=== PATIENT | female | born 1935 | race Caucasian/White ===

== ENCOUNTER 2022-10-28 08:03 | Outpatient (AMB) | payer MEDICAID, SELFPAY ==
--- NOTE | 2022-10-28 08:12 | MHC.OFFVIS ---
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-Cognitive Decline - LVM to r/s MD off-LVM Intake Note: NPV for Cognative decline Clinical Science Consultant Required: Yes Clinical Science Consultant Name: Romansh Allergies No Known Allergies Allergy (Unverified 10/28/22 08:12) Medication List - Last Reconciled 10/28/22 by Brit Jacob MD amlodipine 2.5 mg PO DAILY aspirin 1 tab PO DAILY atorvastatin 20 mg PO DAILY donepezil 10 mg PO BEDTIME doxycycline hyclate 100 mg PO BID escitalopram oxalate 5 mg PO DAILY gabapentin mg PO multivitamin 1 tab PO DAILY HPI HPI Comments History of Present Illness Details 87y/o female comes for evaluation of memory issues. 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 she misplaces things around the house and searches often .she has short term memory issues, repeats often. 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 she has depression since she lost siblings younger than her.Her younger sister had dementia and was very advanced when she passed.she has another sibling with cognitive issues. No head injury. 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 [facility] Medical History (Updated 10/28/22 @ 08:59 by Brit Jacob MD) Nocturnal leg cramps Hyperlipidemia Shingles HTN (hypertension) Anxiety Cognitive disorder Surgical History (Updated 10/19/22 @ 09:40 by Maday Carlin [facility]) Hx of cataract surgery History of hip replacement Family History (Updated 10/28/22 @ 08:16 by Amira Bella CMA) Maternal Grandfather Heart disease Family/Other Alzheimer's dementia Social History (Updated 10/28/22 @ 08:17 by Amira Bella CMA) Alcohol intake: never Patient Tobacco Use Status: Never used Tobacco Use of substances other than those prescribed or required for medical reasons: No Review of Systems Const Reports no additional complaints Musc Reports abnormal gait Neuro Reports abnormal gait and Reports memory loss Psych Reports anxiety and Reports memory loss Physical Exam Vital Signs: Last Vital Signs Pulse 75 10/28/22 08:18 BP 130/78 10/28/22 08:18 Pulse Ox 96 10/28/22 08:18 Oxygen Delivery Method Room Air 10/28/22 08:18 BMI result Body Mass Index 22.4 Const General: cooperative, healthy appearing and anxious Nutritional Appearance: average body habitus Orientation/consciousness: patient oriented x3 Neuro General: patient oriented x3 Orientation What is the (year) (season) (date) (day) (month)?: year, season and month Where are we (state) (county) (town or city) (hospital) (floor)?: state, county, town or city and hospital/clinic Registration Name of 3 unrelated objects clearly and slowly, then ask patient to repeat all 3 of them. (1st repeat determines score. Make sure they can repeat all three): object 1, object 2 and object 3 Attention & Calculation (CHOOSE ONE) Spell WORLD backwards (DLROW): 5 letters Recall Ask patient to repeat the 3 items from question #3.: object 1 Language Show patient a wristwatch & ask what it is. Repeat for pencil.: watch and pencil Ask the patient to repeat the phrase 'No ifs, ands, or buts' after you.: correct Ask the patient to 'take a piece of paper with their right hand' 'fold paper in half' 'place paper on floor': take paper in right hand, fold paper in half and place paper on floor Print the sentence 'CLOSE YOUR EYES' on a piece. If patient actually closes eyes then score.: followed written direction Give patient a blank piece of paper & ask to write a sentence. Score if it contains a noun & verb.: sentence contains subject and verb Ask patient to copy figure of intersecting pentagons exactly. Score if all 10 angles & 2 intersects are included.: all 10 angles present & 2 are intersected Score Score: 25 Assessment & Plan Assessment & Plan (1) Cognitive disorder: Comment: Mild cognitive impairment vs early dementia Code(s): F09 - Unspecified mental disorder due to known physiological condition (2) Anxiety: Code(s): F41.9 - Anxiety disorder, unspecified Plan She was very anxious during todays visit. I will increase her escitalopram to 10 mg qd MRI brain Labs to r/o reversible causes Continue donepezil 10mg qd will consider adding namenda Cognitive therapy - patient does cognitive activities at home Orders: Orders Comprehensive Met. Panel Today F09 - Unspecified mental disorder due to known physiological condition Vitamin B12 and Folate Today F09 - Unspecified mental disorder due to known physiological condition MR head/brain wo con Today F09 - Unspecified mental disorder due to known physiological condition Complete Blood Count Auto Diff Today F09 - Unspecified mental disorder due to known physiological condition TSH reflex Free T4 Today F09 - Unspecified mental disorder due to known physiological condition Vitamin D 25-OH (D2 and D3) Today F09 - Unspecified mental disorder due to known physiological condition Erythrocyte Sedimentation Rate Today F09 - Unspecified mental disorder due to known physiological condition Medications: New escitalopram oxalate 10 mg PO DAILY 30 tabs 3RF Coding Level of Care Code New Pt Level 4 (00681) Diagnoses Cognitive disorder F09 Anxiety F41.9
[2022-10-28 08:18] VITALS: BP 130/78; PULSE 75; O2SAT 96; BMI 22.4
== END 2022-10-28 09:00 | disposition home or self-care (01) ==
PROVIDERS: Visit Provider Psychiatry & Neurology Neurology
DX: R41.89 Other symptoms and signs involving cognitive functions and awareness (principal); F41.9 Anxiety disorder, unspecified
CPT/HCPCS: 99204

== ENCOUNTER → 2022-10-28 08:03 | Outpatient (BNVA) | payer MEDICAID, SELFPAY | PROVIDERS: Visit Provider Psychiatry & Neurology Neurology ==

== ENCOUNTER 2022-11-28 10:01 | Outpatient (REF) | payer MEDICAID, SELFPAY ==
--- NOTE | ~2022-11-28 | MR_ITS ---
EXAMINATION: MRI brain. INDICATION: Cognitive disorder. . TECHNIQUE: Examination was performed in a high field strength MRI scanner. Multiplanar multisequence MR imaging of the brain was performed without IV contrast enhancement. Additional high-resolution anatomic imaging was performed through the brain and images were submitted for post processing including auto-segmentation and volumetric analysis. FINDINGS: Ventricles, sulci and cisterns are dilated. Multiple patchy and focal T2 hyperintense lesions are seen along bilateral frontal and parietal periventricular and deep white matters, left frontal subcortical white matter. Tiny focal T2 hyperintense lesions are present in bilateral tom radiata and external capsules No focal brainstem or cerebellar lesions with abnormal signal can be seen. Diffusion weighted images show no abnormal regional decrease in diffusion. Normal flow voids of major intracerebral blood vessels are seen in the visualized portion. The pituitary gland is normal. Optic chiasm is not displaced. Cerebellar tonsils position is normal. MR/MR head/brain wo con IMPRESSION: 1. 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 2. No acute cerebral infarction is seen. 3. No evidence of space occupying mass lesion could be found. 4. No evidence of intracranial hemorrhage.
== END 2022-11-28 10:02 | disposition home or self-care (01) ==
LOC: HO.MRI 10:01
PROVIDERS: Visit Provider Psychiatry & Neurology Neurology
DX: F09 Unspecified mental disorder due to known physiological condition (principal)
CPT/HCPCS: 70551

== ENCOUNTER 2023-01-25 08:50 | Outpatient (AMB) | payer MEDICAID, SELFPAY ==
--- NOTE | 2023-01-25 09:02 | A.OFFVIS_ITS ---
Intake Vital Signs 01/25/23 09:03 Height 5 ft Weight 116 lb 8 oz BMI 22.7 BP 130/70 Blood Pressure Location Lt brachial Position Sitting Respiration 16 Pulse 96 Pulse Source Palpation Pulse Oximetry (%) 96 Oxygen Delivery Method Room Air Intake Visit Reasons: 3 mo f/u for Cognitive Decline w/Kathya schultz MD- Conf Intake Note: Pt presents to the office for 3 month follow up for cognitive decline. Pt is here to discuss MRI results from November. Customer Support Analyst Required: No Allergies aspirin Allergy (Intermediate, Verified 01/25/23 09:09) bruising Medication List - Last Reconciled 01/25/23 by Karl Hickey CNP amlodipine 2.5 mg PO DAILY aspirin 1 tab PO DAILY atorvastatin 20 mg PO DAILY cholecalciferol (vitamin D3) 62.5 mcg PO QAM cholecalciferol (vitamin D3) 50 mcg PO DAILY donepezil 10 mg PO BEDTIME escitalopram oxalate 10 mg PO DAILY gabapentin mg PO multivitamin 1 tab PO DAILY HPI HPI Comments History of Present Illness Details 87 y/o female comes for follow up of memory issues. She is accompanied by her son. Pt reports her memory and her mood improved with escitalopram 10 mg daily. She can remember better. Pt is on donepezil 10 mg daily, no side effects reported. Reviewed the lab result, Vitamin D level was low, 24 and she started supplement vitmain D. Brain MRI result reviewed. 1. 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 2. No acute cerebral infarction is seen . 3. No evidence of space occupying mass lesion could be found. 4. No evidence of intracranial hemorrha ge. Pt reports she sleeps good, she used to have nocturnal leg cramps but better now. She is independent all ADLs, drives to local, short distance. [facility] Medical History (Updated 10/28/22 @ 08:59 by Brit Jacob MD) Nocturnal leg cramps Hyperlipidemia Shingles HTN (hypertension) Anxiety Cognitive disorder Surgical History Hx of cataract surgery History of hip replacement Family History Maternal Grandfather Heart disease Family/Other Alzheimer's dementia Social History Alcohol intake: never Patient Tobacco Use Status: Never used Tobacco Review of Systems Const All systems reviewed & are unremarkable except as noted in HPI and below Physical Exam Vital Signs: Last Vital Signs Pulse 96 01/25/23 09:03 Resp 16 01/25/23 09:03 BP 130/70 01/25/23 09:03 Pulse Ox 96 01/25/23 09:03 Oxygen Delivery Method Room Air 01/25/23 09:03 BMI result Body Mass Index 22.7 Const General: cooperative and healthy appearing Nutritional Appearance: average body habitus Orientation/consciousness: patient oriented x3 Neuro General: patient oriented x3 Assessment & Plan Assessment & Plan (1) Cognitive disorder: Comment: Mild cognitive impairment vs early dementia Code(s): F09 - Unspecified mental disorder due to known physiological condition (2) Anxiety: Code(s): F41.9 - Anxiety disorder, unspecified Plan Advised patient to continue to take escitalopram to 10 mg qd. Continue donepezil 10mg qd and vitamin D supplement. Pt does not want to start namenda. Continue to do cognitive therapy - patient does cognitive activities at home, and physical activities. Coding Level of Care Code Est Pt Level 4 (06450) Diagnoses Cognitive disorder F09 Anxiety F41.9
[2023-01-25 09:03] VITALS: BP 130/70; PULSE 96; RESP 16; O2SAT 96; BMI 22.7
== END 2023-01-25 09:42 | disposition home or self-care (01) ==
PROVIDERS: PCP Internal Medicine Geriatric Medicine; Visit Provider Nurse Practitioner Family
DX: G31.84 Mild cognitive impairment of uncertain or unknown etiology (principal); F41.9 Anxiety disorder, unspecified; R90.82 White matter disease, unspecified
CPT/HCPCS: 99214

== ENCOUNTER → 2023-01-25 08:50 | Outpatient (BNVA) | payer MEDICAID, SELFPAY | PROVIDERS: PCP Internal Medicine Geriatric Medicine; Visit Provider Nurse Practitioner Family | DX: F09 Unspecified mental disorder due to known physiological condition (principal); F41.9 Anxiety disorder, unspecified | CPT/HCPCS: 99212 ==

== ENCOUNTER 2023-06-15 07:27 | Outpatient (AMB) | payer MEDICAID, SELFPAY ==
--- NOTE | 2023-06-15 07:30 | A.OFFVIS_ITS ---
Vital Signs 06/15/23 07:31 Height 5 ft Weight 114 lb 6 oz BMI 22.3 BP 160/78 H Blood Pressure Location Rt brachial Position Sitting Respiration 76 H Pulse 69 Pulse Source Pulse Oximeter Pulse Oximetry (%) 98 Oxygen Delivery Method Room Air Intake Visit Reasons: 6 mo f/u - Cognitive Decline Intake Note: Pt presents for 5 month follow up for memory. Director Facilities Maintenance Required: Yes Director Facilities Maintenance Name: Alaina Allergies aspirin Allergy (Intermediate, Verified 06/15/23 07:31) bruising Medication List - Last Reconciled 06/15/23 by Brit Jacob MD amlodipine 2.5 mg PO DAILY aspirin 1 tab PO DAILY atorvastatin 20 mg PO DAILY cholecalciferol (vitamin D3) 62.5 mcg PO QAM cholecalciferol (vitamin D3) 50 mcg PO DAILY donepezil 10 mg PO BEDTIME escitalopram oxalate 10 mg PO DAILY gabapentin mg PO multivitamin 1 tab PO DAILY HPI Comments Details: 87 y/o female comes for follow up of memory issues. She is accompanied by her son. Pt reports her memory and her mood improved with escitalopram 10 mg daily. She can remember better. Pt is on donepezil 10 mg daily, no side effects reported. Pt reports she sleeps good, she used to have nocturnal leg cramps but better now. She is independent all ADLs, drives to local, short distance. [facility] Medical History Nocturnal leg cramps Hyperlipidemia Shingles HTN (hypertension) Anxiety Cognitive disorder Surgical History Hx of cataract surgery History of hip replacement Family History Maternal Grandfather Heart disease Family/Other Alzheimer's dementia Social History Alcohol intake: never Patient Tobacco Use Status: Never used Tobacco Physical Exam Vital Signs: Last Vital Signs Pulse 69 06/15/23 07:31 Resp 76 H 06/15/23 07:31 BP 160/78 H 06/15/23 07:31 Pulse Ox 98 06/15/23 07:31 Oxygen Delivery Method Room Air 06/15/23 07:31 BMI result Body Mass Index 22.3 Const General: cooperative, healthy appearing and comfortable Nutritional Appearance: average body habitus Orientation/consciousness: oriented to person Neuro General: oriented to person, tone normal and moves all extremities Cranial nerves: Yes Facial sensation intact/muscles of mastication intact, Yes Nystagmus not present, Yes Normal facial strength present and Yes Midline tongue present Cognition (Neuro): abnormal cognition Gait exam (Neuro): Antalgic gait present Orientation What is the (year) (season) (date) (day) (month)?: year, season and month Where are we (state) (county) (town or city) (hospital) (floor)?: state, town or city, hospital/clinic and floor Registration Name of 3 unrelated objects clearly and slowly, then ask patient to repeat all 3 of them. (1st repeat determines score. Make sure they can repeat all three): object 1, object 2 and object 3 Attention & Calculation (CHOOSE ONE) Spell WORLD backwards (DLROW): 2 letters Language Show patient a wristwatch & ask what it is. Repeat for pencil.: watch and pencil Ask the patient to repeat the phrase 'No ifs, ands, or buts' after you.: correct Ask the patient to 'take a piece of paper with their right hand' 'fold paper in half' 'place paper on floor': take paper in right hand, fold paper in half and place paper on floor Print the sentence 'CLOSE YOUR EYES' on a piece. If patient actually closes eyes then score.: followed written direction Give patient a blank piece of paper & ask to write a sentence. Score if it contains a noun & verb.: sentence contains subject and verb Ask patient to copy figure of intersecting pentagons exactly. Score if all 10 angles & 2 intersects are included.: all 10 angles present & 2 are intersected Score Score: 21 Assessment & Plan Assessment & Plan (1) Cognitive disorder: Comment: dementia Code(s): F09 - Unspecified mental disorder due to known physiological condition Category: Medical (2) Anxiety: Code(s): F41.9 - Anxiety disorder, unspecified Category: Medical Plan Advised patient to continue to take escitalopram to 10 mg qd. Continue donepezil 10mg qd and vitamin D supplement. I will trial her on memantineXR 7mg qd and titrate upto 28 mg qd will consider PET Amyloid for possible treatment with leqembi Continue to do cognitive therapy - patient does cognitive activities at home, and physical activities. Medications: New memantine 7 mg PO DAILY 30 ea 0RF memantine start after 1 month on 14 mg 21 mg PO DAILY 30 ea 0RF memantine start after 1 month on 7 mg 14 mg PO DAILY 30 ea 0RF memantine 28 mg PO DAILY 30 ea 6RF Coding Level of Care Code Est Pt Level 4 (72865) Complex EM visit Add On G2211 Diagnoses Cognitive disorder F09 Anxiety F41.9
[2023-06-15 07:31] VITALS: BP 160/78; PULSE 69; RESP 76; O2SAT 98; BMI 22.3
== END 2023-06-15 08:23 | disposition home or self-care (01) ==
PROVIDERS: PCP Internal Medicine Geriatric Medicine; Visit Provider Psychiatry & Neurology Neurology
DX: F03.93 Unspecified dementia, unspecified severity, with mood disturbance (principal); F41.9 Anxiety disorder, unspecified
CPT/HCPCS: 99214; G2211

== ENCOUNTER → 2023-06-15 07:27 | Outpatient (BNVA) | payer MEDICAID, SELFPAY | PROVIDERS: PCP Internal Medicine Geriatric Medicine; Visit Provider Psychiatry & Neurology Neurology | DX: F09 Unspecified mental disorder due to known physiological condition (principal); F41.9 Anxiety disorder, unspecified | CPT/HCPCS: 99212 ==

== ENCOUNTER 2024-04-08 08:54 | Outpatient (AMB) | payer MEDICAID, SELFPAY ==
[2024-04-08 08:57] VITALS: BP 160/84; PULSE 92; O2SAT 94; BMI 24.5
--- NOTE | 2024-04-08 08:57 | MHC.OFFVIS ---
Vital Signs 04/08/24 08:57 Height 5 ft Weight 125 lb 6 oz BMI 24.5 BP 160/84 H Blood Pressure Location Rt brachial Position Sitting Pulse 92 Pulse Source Pulse Oximeter Pulse Oximetry (%) 94 Oxygen Delivery Method Room Air Intake Visit Reasons: 6 Month F/U Intake Note: patient following up for dementia pt. trialed on memantine Accompanied by: Daughter Allergies aspirin Allergy (Intermediate, Verified 04/08/24 09:01) bruising HPI Comments Details: 87 y/o female comes for follow up of memory issues. She is accompanied by her daughter. Pt reports her memory and her mood are poor, she is more forgetful. Pt is on donepezil 10 mg daily, no side effects reported. Pt reports she sleeps well, she used to have nocturnal leg cramps but are better now. She is independent with all ADLs and lives at the [facility]. Per daughter her mood is irritated at times. Pt says she stays active most days, she goes and cleans her plants, her house, reads daily, walks 10-15 min. Her diet is good and BP is elevated as she has white coat syndrome. Per daughter her memory is declining, however she remains in contact with all her family and friends on a daily basis. [facility] Medical History Nocturnal leg cramps Hyperlipidemia Shingles HTN (hypertension) Anxiety Cognitive disorder Surgical History Hx of cataract surgery History of hip replacement Family History Maternal Grandfather Heart disease Family/Other Alzheimer's dementia Social History Alcohol intake: never Patient Tobacco Use Status: Never used Tobacco Physical Exam Vital Signs: Last Vital Signs Pulse 92 04/08/24 08:57 BP 160/84 H 04/08/24 08:57 Pulse Ox 94 04/08/24 08:57 Oxygen Delivery Method Room Air 04/08/24 08:57 BMI result Body Mass Index 24.5 Const General: cooperative, healthy appearing and comfortable Nutritional Appearance: average body habitus Orientation/consciousness: oriented to person Neuro General: oriented to person, tone normal and moves all extremities Cranial nerves: Yes Facial sensation intact/muscles of mastication intact, Yes Nystagmus not present, Yes Normal facial strength present and Yes Midline tongue present Cognition (Neuro): abnormal cognition Gait exam (Neuro): Antalgic gait present Orientation What is the (year) (season) (date) (day) (month)?: year and day Where are we (state) (county) (town or city) (hospital) (floor)?: state, town or city and hospital/clinic Attention & Calculation (CHOOSE ONE) Spell WORLD backwards (DLROW): 3 letters Recall Ask patient to repeat the 3 items from question #3.: object 2 Language Show patient a wristwatch & ask what it is. Repeat for pencil.: watch and pencil Ask the patient to repeat the phrase 'No ifs, ands, or buts' after you.: incorrect Ask the patient to 'take a piece of paper with their right hand' 'fold paper in half' 'place paper on floor': take paper in right hand, fold paper in half and place paper on floor Print the sentence 'CLOSE YOUR EYES' on a piece. If patient actually closes eyes then score.: followed written direction Score Score: 15 Assessment & Plan Assessment & Plan (1) Cognitive disorder: Comment: dementia Code(s): F09 - Unspecified mental disorder due to known physiological condition Category: Medical (2) Anxiety: Code(s): F41.9 - Anxiety disorder, unspecified Category: Medical (3) Alzheimer's dementia: Code(s): G30.9 - Alzheimer's disease, unspecified; F02.80 - Dementia in other diseases classified elsewhere, unspecified severity, without behavioral disturbance, psychotic disturbance, mood disturbance, and anxiety Category: Medical Qualifiers: Alzheimer's disease onset: unspecified onset Dementia behavioral or psychological symptom: with anxiety Dementia severity: moderate Qualified Code(s): G30.9 - Alzheimer's disease, unspecified; F02.B4 - Dementia in other diseases classified elsewhere, moderate, with anxiety Plan Continue escitalopram 10 mg po qd Continue donepezil 10mg po qd and vitamin D supplement. Continue Memantine XR 28mg po qd Will do an MRI for Leqembi MMSE was 1530 today Will consider PET Amyloid for possible treatment with leqembi Continue with cognitive therapy, puzzles and social activities. F/U in 4 months Orders: Orders MR head/brain wo con 04/08/24 F09 - Unspecified mental disorder due to known physiological condition, R41.3 - Other amnesia Patient Instructions: MMSE 15/30 today MRI scan today Pet-scan- amyloid-montserrat to determine if patient is a good candidate for Leqembi infusion therapy Will f/u in 4 months. Coding Level of Care Code Est Pt Level 4 (69213) Diagnoses Cognitive disorder F09 Anxiety F41.9 Moderate Alzheimer's dementia with anxiety, unspecified timing of dementia onset G30.9; F02.B4 Alzheimer's disease onset: unspecified onset Dementia behavioral or psychological symptom: with anxiety Dementia severity: moderate Time Spent (min) 30 Comment Worsening Dementia
--- OUTSIDE RECORDS SUMMARY | 2024-04-08 09:28 | XMS_ITS | Data Portability ---
Author Organization [facility], [facility] Address [address] [place] [address] Care Team Providers Care Ladle Repairer Name Role Phone [facility] Primary Care Provider Assessment Encounter Date Assessment Date Assessment LastModified by Organization Details LastModified Time 07/09/2018 07/09/2018 Peripheral vascular disease, onychauxis bilateral hallux jerskine Not available 07/09/2018 09:20:51 09/17/2018 09/17/2018 Peripheral vascular disease, onychauxis bilateral hallux jerskine Not available 09/17/2018 09:21:53 04/15/2019 04/15/2019 Peripheral vascular disease, onychauxis bilateral hallux jerskine Not available 04/15/2019 12:33:17 04/03/2023 04/03/2023 Peripheral vascular disease, onychauxis bilateral hallux, hyperkeratotic lesion jerskine Not available 04/03/2023 14:21:33 08/18/2023 08/18/2023 Peripheral vascular disease, onychauxis bilateral hallux causing pain, hyperkeratotic lesion jerskine Not available 08/18/2023 12:26:08 Plan of Treatment Reminders Order Date Submit Date Provider Last Modified By Organization Details Last Modified Time Details Appointments Follow Up, 15 2024 09:30A M Ronald Casillas DPM Not available Not available Not available Lab None recorded . Referral None recorded . Procedures None recorded . Surgeries None recorded . Imaging None recorded . Medication Orders None recorded . Patient TargetsNo targets recorded. Patient Instructions Encounter Date Encounter Id Patient Instructions Last Modified By Organization Details Last Modified Time 07/09/2018 [id number] Procedure return in 9 weeks for foot care to reduce risk of complications associated with peripheral vascular disease. jerskine Not available 07/09/2018 09:21:19 09/17/2018 [id number] Procedure return in 9 weeks for foot care to reduce risk of complications associated with peripheral vascular disease. jerskine Not available 09/17/2018 09:21:53 04/15/2019 [id number] Procedure return in 9 weeks for foot care to reduce risk of complications associated with peripheral vascular disease. jerskine Not available 04/15/2019 12:33:17 04/03/2023 [id number] Procedure return in 9 weeks for foot care to reduce risk of complications associated with peripheral vascular disease. jerskine Not available 04/03/2023 14:19:26 08/18/2023 [id number] Procedure return in 9 weeks for foot care to reduce risk of complications associated with peripheral vascular disease. jerskine Not available 08/18/2023 12:24:42 Reason for Referral None Reported. Problems Name Problem SNOMED Code Status Onset Date Resolution Date Notes Provider Name and Address Organization Details Recorded Time Cramp in lower leg associated with rest 902646472 Completed 12/26/2012 Heather Wagner NP [address] [place] [address] [place], [address], [facility], [place] 6 09:25:35 Benign hypertensiv e heart disease 74980516 Active Heather Wagner NP [address] [place] [address] [place], [address], [facility], [place] 6 09:25:35 Essential hypertensio n 54846958 Active Heather Wagner NP [address] [place], [place] [address], [address], [facility], [place] 6 10:23:00 Problem Notes None recorded. Procedures Surgical History Date Name Laterality Status Provider Name and Address Organization Details Recorded Time 6 Refraction completed Soila Suarez, OD [address] [place], [address], [facility], [place] 05/11/2015 14:30:08 8 Tubal Ligation completed Not Available [facility] 12[facility] 06:06:16 Imaging Results None recorded. Procedure Notes None recorded. Medical Equipment None Reported. Allergies No known drug allergies Medications Name Sig Start Date Stop Date Status Note LastModified by Organization Details LastModified Time Benadryl Allergy 12.5 mg/5 mL oral liquid Take 5- 10 mL qhs by oral route prn. 03/27 completed Not Available Not Available Not Available doxycycline hyclate 100 mg capsule TAKE 1 CAPSULE BY MOUTH TWICE DAILY FOR 10 DAYS 04/03 completed Not Available Not Available Not Available atorvastatin 20 mg tablet TAKE 1 TABLET BY MOUTH ONCE DAILY active Not Available Not Available No t Available azithromycin 250 mg tablet Take 2 tablets (500 mg) by oral route once daily for 1 day then 1 tablet (250 mg) by oral route once daily for 4 days. 2009 active Not Available Not Available Not Avai lable metoprolol succinate ER 50 mg tablet,exten ded release 24 hr take one tablet daily 2013 active Not Available Not Available Not Avai lable hydrochlorot hiazide 50 mg tablet active Take 1.00 tab po qd Not Available Not Available Not Available valacyclovir 1 gram tablet Take 2 tablets every 12 hours by oral route for one day. 2009 active Not Available Not Available Not Avai lable donepezil 10 mg tablet TAKE 1 TABLET BY MOUTH EVERY DAY AT BEDTIME FOR 30 DAYS 04/03 completed Not Available Not Available Not Available amlodipine 2.5 mg tablet TAKE 1 TABLET BY MOUTH ONCE DAILY active Not Available Not Available No t Available amlodipine 5 mg tablet TAKE 1 TABLET BY MOUTH ONCE DAILY 04/03 completed Not Available Not Available Not Available metoprolol tartrate 50 mg tablet TAKE ONE TABLET BY MOUTH TWICE DAILY 03/27 completed Not Available Not Available Not Available aspirin 81 mg chewable tablet CHEW AND SWALLOW 1 TABLET BY MOUTH ONCE DAILY active Not Available Not Available No t Available codeine 10 mg-guaifenes in 100 mg/5 mL oral liquid Take 2 tsp every 4 hours by oral route as needed. 2009 active Not Available Not Available Not Avai lable gabapentin 100 mg capsule TAKE 1 CAPSULE BY MOUTH AT BEDTIME AND 1-2 TIMES DURING THE DAY NEEDED FOR PAIN active Not Available Not Available No t Available atenolol 50 mg tablet Take 1 tablet every day by oral route. 2009 active Not Available Not Available Not Avai lable naproxen 500 mg tablet Take 1 tablet twice a day by oral route. 2009 active Not Available Not Available Not Avai lable escitalopram 10 mg tablet TAKE 1 TABLET BY MOUTH ONCE DAILY active Not Available Not Available No t Available escitalopram 5 mg tablet TAKE 1 TABLET BY MOUTH ONCE DAILY 04/03 completed Not Available Not Available Not Available lisinopril 04/03 completed Not Available Not Available Not Available cholecalcife rol (vitamin D3) 50 mcg (2,000 unit) tablet TAKE 1 TABLET BY MOUTH ONCE DAILY active Not Available Not Available No t Available memantine 14 mg capsule sprinkle,ext ended release 24hr TAKE 1 CAPSULE BY MOUTH ONCE DAILY; START AFTER 1 MONTH ON 7MG active Not Available Not Available No t Available memantine 7 mg capsule sprinkle,ext ended release 24hr TAKE 1 CAPSULE BY MOUTH ONCE DAILY active Not Available Not Available No t Available memantine 21 mg capsule sprinkle,ext ended release 24hr TAKE 1 TABLET BY MOUTH ONCE DAILY START AFTER 1 MONTH ON 14 MG active Not Available Not Available No t Available glucosamine 116 mg-chondroit in 100 mg-dietary supplement #25 capsule Take 1 capsule every day by oral route. 03/27 completed Not Available Not Available Not Available Vitals Date Recorded Heart rate Systolic blood pressure Diastolic blood pressure Provider Name and Address Organization Details Last Updated DateTime 07/09/2018 66 /min 160 mm[Hg] 74 mm[Hg] Saritha Burrows MA [facility] 07/09/2018 09:00:33 Date Recorded Heart rate Systolic blood pressure Diastolic blood pressure Provider Name and Address Organization Details Last Updated DateTime 09/17/2018 72 /min 130 mm[Hg] 54 mm[Hg] Emily Merritt MA [facility] 09/17/2018 09:00:38 Date Recorded Heart rate Systolic blood pressure Diastolic blood pressure Provider Name and Address Organization Details Last Updated DateTime 04/15/2019 66 /min 120 mm[Hg] 68 mm[Hg] Emily Merritt MA [facility] 04/15/2019 10:23:38 Date Recorded Heart rate Systolic blood pressure Diastolic blood pressure Provider Name and Address Organization Details Last Updated DateTime 04/03/2023 80 /min 148 mm[Hg] 68 mm[Hg] Camila Antunez [facility] 04/03/2023 14:00:16 Date Recorded Body weight Heart rate Systolic blood pressure Diastolic blood pressure Provider Name and Address Organization Details Last Updated DateTime 08/18/2023 891266.78 g 80 /min 138 mm[Hg] 62 mm[Hg] Camila Antunez [facility] 08/18/2023 12:03:51 Social History Question Answer Notes LastModified by Organizat ion Details LastModified Time Tobacco Smoking Status Never Smoker Not Available [facility] 12/23/2010 04:54:19 Do You Have An Advance Directive? No [email or web address] Information not available 12/23/2010 What Is Your Level Of Alcohol Consumption? Occasional Information not available 04/27/2015 How Much Tobacco Do You Chew? None [email or web address] Information not available 12/23/2010 Which Illicit Or Recreational Drugs Have You Used? None [email or web address] Information not available 12/23/2010 How Many Days In The Past Year Have You Had A Heavy Drinking Consumption (4+ Female, 5+ Male)? 0 Information not available 04/27/2015 Are There Any Guns Present In Your Home? No [email or web address] Information not available 12/23/2010 Live Alone Or With Others? With Others Daughter Lives [place] Information not available 02/27/2009 Patient Has Health Care Proxy Signed And In Chart No 04/27/15 Information not available 04/27/2015 Marital Status Information not available 12/23/2010 Mosquito Repellent Used Routinely No [email or web address] Information not available 12/23/2010 What Was The Date Of Your Most Recent Tobacco Screening? 04/30/2018 Information not available 08/29/2018 How Many Children Do You Have? 2 [email or web address]_ [email or web address] Information not available 12/23/2010 Seat Belts Used Routinely Yes [email or web address] Information not available 12/23/2010 Smoke Alarm In Home Yes [email or web address] Information not available 12/23/2010 Do You Use Sunscreen Routinely? No [email or web address] Information not available 12/23/2010 Sex: Female Functional Status None recorded. Mental Status None recorded. Family History Relationship Description Onset Age of this Age Resolved Age Notes LastModified by Organization Details LastModified Time Mother Myocardial infarction 78 [email or web address] Not available 04/26 09:25:49 Father Myocardial infarction 56 hx 3 prior [place] Not available 04/27/2015 09:25:49 Notes:no family hx diabetes or cancer Medical History Condition Response Osteoarthritis Y Hypertension Y Gynecological HistoryNo gynecological history recorded. Obstetrics History GPAL:G 0 P 0 0 0 0 Past Encounters Encounter ID Performer Location Encounter Start Date Encounter Closed Date Diagnosis/Indication Diagnosis SNOMED-CT Code Diagnosis ICD10 Code Diagnosis Note [id number] , [facility], [address] [place] [address] 02/27/2009 13:07:25 03/04/2009 13:35:24 [id number] Kathy Green LPN [facility], [address] [place] [address] 03/31/2009 08:05:33 04/02/2009 15:16:19 [id number] Aleja Chairez D.O. [facility], OFFICE [address] [place] [address] 04/30/2009 08:10:56 04/30/2009 11:14:16 [id number] Radiology , [address] [address] 04/30/2009 09:21:21 05/01/2009 10:30:42 [id number] Ronald Casillas DPM Podiatry, [address] [address] 05/28/2012 09:01:31 05/28/2012 09:34:00 [id number] Aleja Chairez D.O. [facility], OFFICE [address] [place] [address] 03/11/2013 12:09:09 03/13/2013 10:41:01 Essential hypertension 37246762 has been off metoprolol tartrate 50 mg ONCE daily for the past 2 weeks. has been here for the past 2 years, living with daughter, bit no insurance. does not want to come to the doctor for preventati ve conditions , comes only when she is not feeling well. discussed with HTN, needs to have kdineys checked every 6 mo and yearly lipid Restless legs 29707429 d id take quinine and increased hydration without effect printed handout from [employer] - discussed exercise 30 min prior to bedtime and adding daily iron to her regimen. does not often eat meat. [id number] Day Andrade , [facility], [address]ICE [address] [place] [address] 08/26/2013 10:31:10 08/26/2013 11:16:46 Essential hypertension 36333323 BP readings atr home good range from 130-140/70 -80 Red eye 20888690 left lateral eye redness she got shampooo in eye 3 days ago, wa svery itchy now with what looks like inflammati on and an eyelash which was not able to be removed advised natural tears,a nd if no improvemen t in 3-4 days, will see optomotry [id number] Ellen Juarez , [facility], [address] [place] [address] 02/24/2014 08:49:29 02/24/2014 09:25:39 Adult health examination 416674505 Essential hypertension 85581570 doing well on low dose b-angelo [id number] Brandy Abdi Podiatry, [facility] [address] [place] [address] 03/16/2015 09:46:07 03/16/2015 11:40:18 Metatarsalgia 97989337 M77.42 Plantar fasciitis 869868 003 M72.2 Pronation of foot 978780 03 M21.6X9 [id number] Heather Wagner NP , [facility], [address] [place] [address] 04/27/2015 09:09:05 04/27/2015 09:47:44 Screening mammography 80761297 Z12.31 declines mammo- understand s risk/poten tial consequenc es of not getting screening done. Screening for malignant neoplasm of colon 180818220 Z12.11 declines mammo- understand s risk/poten tial consequenc es of not getting screening done..] Postmenopausal state 764 59778 Z78.0 declines mammo- understand s risk/poten tial consequenc es of not getting screening done. Essential hypertension 34195948 I10 BP at goal due for labs Cramp in lower limb 4499 57321 R25.2 keeps well hydrated, diet high in potassium will check bmp, b vitamins advised to start bendryl 12.5- 25 mg qhs; reviwed possible side effects Neck pain 10562474 M54.2 suspect arthritis advised ibuprofen prn with meals, heating bad encouarged PT but pt declines at this time Skin problem 774585958 R 23.9 [id number] [facility], [address] [place] [address] 05/11/2015 13:03:04 05/21/2015 10:30:18 Cataract 975385794 H25.13 Astigmatism 04444010 H52 .203 Amblyopia 697692197 H53. 886 [id number] Sandro Malone Podiatry, [address] [address] 06/22/2015 11:47:40 07/16/2015 11:28:30 Metatarsalgia 92966425 M77.42 M77.41 Hammer toe 880327763 M20 .40 [id number] Heather Wagner NP , [facility], OFFICE [address] [place] [address] [place] [address] 06/29/2015 07:57:53 06/29/2015 08:24:26 Essential hypertension 77978000 I10 Bp at goalc/w metoprolol Postmenopausal state 764 14441 Z78.0 decline BMDadvised to start calcium 600-1000 mg and Vitamind D 800-2000 IU Screening for malignant neoplasm of colon 404972262 Z12.11 [id number] Ronald Casillas DPM Podiatry, [address] [address] 03/27/2017 10:56:52 03/28/2017 08:45:08 Metatarsalgia 65673784 M77.42 M77.41 [id number] Ronald Casillas DPM Podiatry, [address] [address] 06/05/2017 14:19:58 06/05/2017 14:57:29 Hammer toe 488087409 M20.40 [id number] Ronald Casillas DPM Podiatry, [address] [address] 09/18/2017 09:57:39 09/21/2017 13:00:20 Hypertrophy of nail 62545985 L60.2 Pain in toe 725209042 M7 9.674 M79.667 [id number] Ronald Casillas DPM Podiatry, [address] [place] [address] 12/08/2017 09:36:42 12/12/2017 09:19:27 Hypertrophy of nail 47430728 L60.2 Pain in toe 732651256 M7 9.674 M79.750 [id number] Ronald Casillas DPM Podiatry, [address] [address] 02/26/2018 11:45:24 02/26/2018 12:28:05 Hypertrophy of nail 64716484 L60.2 Pain in toe 107953354 M7 9.674 M79.548 [id number] Ronald Casillas DPM Podiatry, [address] [address] 04/30/2018 10:33:09 04/30/2018 11:21:10 Hypertrophy of nail 69667298 L60.2 Pain in toe 261394613 M7 9.674 M79.812 [id number] Ronald Casillas DPM Podiatry, [address] [address] 07/09/2018 08:52:38 07/09/2018 09:23:06 Peripheral vascular disease 625416759 I73.89 Hypertrophy of nail 3065 4002 L60.2 [id number] Ronald Casillas DPM Podiatry, [address] [address] 09/17/2018 08:47:13 09/17/2018 09:13:36 Peripheral vascular disease 193872402 I73.89 Hypertrophy of nail 3065 4002 L60.2 [id number] Ronald Casillas DPM Podiatry, [address] [address] 04/15/2019 09:42:23 04/15/2019 10:40:57 Peripheral vascular disease 552272212 I73.89 Hypertrophy of nail 3065 4002 L60.2 [id number] Ronald Casillas DPM Podiatry, [address] [address] 04/03/2023 13:38:11 04/03/2023 15:07:21 Peripheral vascular disease 219538842 I73.89 Hypertrophy of nail 3065 4002 L60.2 [place] - lesion 153541056 L84 [id number] Ronald Casillas DPM Podiatry, [address] [address] 08/18/2023 11:21:27 08/29/2023 12:35:07 Peripheral vascular disease 638267258 I73.89 Hypertrophy of nail 3065 4002 L60.2 Pain in toe 552606037 M7 9.674 M79.675 [place] - lesion 951012386 L84 Health Concerns Section Related Observation LastModified by Organization Detai ls LastModified Time None Recorded Concern Status LastModified by Organization Details LastModified Time None Recorded Advance Directives Directive N: Payers Encounter Date Sequence Insurance Name Policy Number Policy Fry Covered Member ID Fry Member ID Guarantor Name 07/09/2018 1 [place] Marth Arnold de Alvarado [id number] Zoya Arnold de Guiterrez 09/17/2018 1 [place] Marth Arnold de Alvarado [id number] Zoya Arnold de Guiterrez 04/15/2019 1 [place] Marth Arnold de Alvarado [id number] Zoya Arnold de Guiterrez 04/03/2023 1 [place] Marth Arnold de Alvarado [id number] Zoya Anrold de Guiterrez 08/18/2023 1 [place] Marth Arnold de Alvarado [id number] Zoya Arnold de Guiterrez Notes Date Note Type Note Provider Name and Address Organization Details Recorded Time 07/09/2018 text/html Patient with peripheral vascular disease presents to the office for evaluation and at risk foot care. Patient complains of thick toenails that cause her pain especially when walking in closed shoes with marked limitation of ambulation which she cannot care for herself. Patient without complaints of open wound drainage. Patient seen by Tiffany Zavala MD on 03/21/18. Ronald Casillas DPM [address] [place] [address], [address], [facility], [place] 07/10/2018 09:14:24 09/17/2018 text/html Patient with peripheral vascular disease presents to the office for evaluation and at risk foot care. Patient complains of thick toenails that cause her pain especially when walking in closed shoes with marked limitation of ambulation which she can't care for herself. Patient without complaints of open wound drainage. Patient seen by Tiffany Zavala MD on 03/21/18. Ronald Casillas DPM [address] [place], [address], [facility], [place] 09/17/2018 09:23:00 04/15/2019 text/html Patient with peripheral vascular disease presents to the office for evaluation and at risk foot care. Patient complains of thick toenails that cause her pain especially when walking in closed shoes with marked limitation of ambulation which she can't care for herself. Patient without complaints of open wound drainage. Patient seen by Tiffany Zavala MD on .11/26/18. Ronald Casillas DPM [address] [place], [address], [facility], [place] 04/16/2019 12:45:47 04/03/2023 text/html Patient with peripheral vascular disease presents to the office for evaluation and at risk foot care. Patient complains of thick toenails that cause her pain especially when walking in closed shoes with marked limitation of ambulation as well as painful corn which she can't care for herself. Patient without complaints of open wound drainage. Patient seen by Keesha Pichardo MD on 10/31/22. Ronald Casillas DPM [address] [place], [address], [facility], [place] 04/03/2023 14:21:56 08/18/2023 text/html Patient with peripheral vascular disease presents to the office for evaluation and at risk foot care. Patient complains of thick toenails that cause her pain especially when walking in closed shoes causing her marked limitation of ambulation as well as painful corn which she can't care for herself. Patient without complaints of open wound drainage. Ronald Casillas DPM [address] [place], [address], [facility] [place], [place] 08/18/2023 12:26:57 OBGyn Episode No OBEpisode recorded.
== END 2024-04-08 10:03 | disposition home or self-care (01) ==
PROVIDERS: PCP Internal Medicine Geriatric Medicine; Visit Provider Physician Assistant Medical
DX: G30.9 Alzheimer's disease, unspecified (principal); F02.B4 Dementia in other diseases classified elsewhere, moderate, with anxiety
CPT/HCPCS: 99214

== ENCOUNTER → 2024-04-08 08:54 | Outpatient (BNVA) | payer MEDICAID, SELFPAY | PROVIDERS: PCP Internal Medicine Geriatric Medicine; Visit Provider Physician Assistant Medical | DX: G30.9 Alzheimer's disease, unspecified (principal); F02.B4 Dementia in other diseases classified elsewhere, moderate, with anxiety; F09 Unspecified mental disorder due to known physiological condition; F41.9 Anxiety disorder, unspecified | CPT/HCPCS: 99212 ==

== ENCOUNTER → 2024-04-29 10:38 | Outpatient (BNV) | payer MEDICAID, SELFPAY | PROVIDERS: PCP Internal Medicine Geriatric Medicine; Visit Provider Radiology Diagnostic Radiology | DX: I67.82 Cerebral ischemia (principal) | CPT/HCPCS: 70551 ==

== ENCOUNTER 2024-04-29 10:41 | Outpatient (REF) | payer MEDICAID, SELFPAY ==
--- NOTE | ~2024-04-29 | MR_ITS ---
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 COMPARISON: Comparison is made with the prior examination dated 11/25/2022. FINDINGS: There is diffuse prominence of the ventricular system and cortical sulci, consistent with atrophy. Periventricular and subcortical white matter hyperintensities are noted on the FLAIR and T2-weighted images which are nonspecific, but often seen in the setting of small vessel ischemic disease. There is no mass effect or midline shift. There are scattered punctate foci of hemosiderin in the right occipital lobe and left frontal lobe which are new from the prior study. There is no evidence of acute intracranial hemorrhage. There are no foci of restricted diffusion. Normal vascular flow voids are noted in the basilar and carotid arteries. The visualized paranasal sinuses are clear. MR/MR head/brain wo con IMPRESSION: Diffuse cerebral atrophy and findings consistent with small vessel ischemic disease of the white matter as described. New tiny foci of hemosiderin in the right occipital and left frontal lobes. Electronically signed by: Adán Macario MD 04/29/2024 01:37 PM EDT
== END 2024-04-29 10:42 | disposition home or self-care (01) ==
LOC: HO.MRI 10:41
PROVIDERS: PCP Internal Medicine Geriatric Medicine; Visit Provider Physician Assistant Medical
DX: F09 Unspecified mental disorder due to known physiological condition (principal); R41.3 Other amnesia
CPT/HCPCS: 70551

== ENCOUNTER 2024-08-05 09:35 | Outpatient (AMB) | payer MEDICAID, SELFPAY ==
--- OUTSIDE RECORDS SUMMARY | 2024-08-05 09:57 | XMS_ITS | Clinical Summary ---
Author Organization [employer] Address [address] [place] [address] Care Team Providers Care Healthcare Business Analyst Name Role Phone Unavailable Primary Care Provider Unavailabl e Social History Tobacco Use Types Packs/Day Years Used Date Smoking Tobacco: Never Assessed Comments Unknown Sex and Gender Information Value Date Recorded Sex Assigned at Female 12/06/2021 10:31 AM EDT Legal Sex Female 10:31 AM EDT Gender Identity Choose not to disclose 10:31 AM EDT Sexual Orientation Choose not to disclose 2021 10:31 AM EDT Plan of Treatment Health Maintenance Due Date Last Done Comments Depression Screening 1936 Alcohol/Substance Use Screening 1948 Tobacco Screening 1947 Zoster Vaccines (1 of 2) 1986 RSV Patients and Patients Aged 60 years or older (1 - 1-dose 75+ series) 07/02/2011 Pneumococcal Vaccine: 50+ Years (2 of 2 - PCV) 11/08/2017 11/08/2016 COVID-19 Vaccine (2 - 2023-2 5 season) 2023 06/12/2020 Influenza Vaccine (Season Ended) 2024 12/20/2017, 01/19/2017 DTaP/Tdap/Td Vaccines (2 - T d or Tdap) 12/19/2026 12/19/2016 HIB Vaccines Aged Out No longer eligi ble based on patient's age to complete this topic HPV Vaccines Aged Out No longer eligi ble based on patient's age to complete this topic Hepatitis A Vaccines Aged Out No long er eligible based on patient's age to complete this topic Hepatitis B Vaccines Aged Out No long er eligible based on patient's age to complete this topic IPV Vaccines Aged Out No longer eligi ble based on patient's age to complete this topic Meningococcal B Vaccine Aged Out No l onger eligible based on patient's age to complete this topic Meningococcal Vaccine Aged Out No brennan tr eligible based on patient's age to complete this topic RSV under 20 months Aged Out No longe r eligible based on patient's age to complete this topic Rotavirus Vaccines Aged Out No longer eligible based on patient's age to complete this topic
[2024-08-05 10:04] VITALS: BP 146/78; PULSE 81; O2SAT 95; BMI 22.3
--- NOTE | 2024-08-05 10:04 | A.OFFVIS_ITS ---
Vital Signs 08/05/24 10:04 Height 5 ft Weight 114 lb 6 oz BMI 22.3 BP 146/78 H Blood Pressure Location Lt brachial Position Sitting Pulse 81 Pulse Source Pulse Oximeter Pulse Oximetry (%) 95 Oxygen Delivery Method Room Air Intake Visit Reasons: 4 mo follow up Intake Note: Patient presents follow up Cognitive. MRI in chart Play Therapist Required: Yes Play Therapist Services: Play Therapist Offered & Declined Play Therapist Name: daughter Information Interpreted: non-clinical & clinical Accompanied by: Daughter Allergies aspirin Allergy (Intermediate, Verified 08/05/24 10:08) bruising HPI Comments Details: 87 y/o female comes for follow up of memory issues. She is accompanied by her daughter, today. Alla her sister 85 visits for 4 hours daily with her. She had a fall on June 2024 on mother's day, she was worked up and cleared in [employer], complete work up, and no injuries. She was sitting on the edge of the bed and lost her balance and fell on the floor, and fell 2 weeks ago again she tripped over the corner of the bed and fell again and not sustain any injuries. She is using her walker for ambulation. Pt reports her stm is poor at baseline and she is more forgetful, her mood tends to be very lucid, repeats.- Per daughter her memory is declining, however she remains in contact with all her family and friends on a daily basis. She needs a constant reminder to complete tasks. Pt is on donepezil 10 mg daily, no side effects reported. Pt reports she sleeps well, goes to bed at 9:30 and wakes up at 8am, no bathroom breaks and legs cramps improved. She is independent with all ADLs and lives at the [facility] in [place]. Occupational therapist and Physical therapist MWF reports she is very anxious, her mood is irritable per daughter Zoya. Pt says she stays active most days, she reads daily, goes and cleans her plants, and the entire apartment, walks 10-15 min. Her diet is good. Per daughter her memory is declining, however she remains in contact with all her family and friends on a daily basis. BP is elevated today, 146/78 in April 140/84 and this is her normal. She will discuss this with her PCP Ramesh Pichardo practice in [place], though this may be her norm due to White coat HTN. [facility] Medical History Nocturnal leg cramps Hyperlipidemia Shingles HTN (hypertension) Anxiety Cognitive disorder Surgical History Hx of cataract surgery History of hip replacement Family History Maternal Grandfather Heart disease Family/Other Alzheimer's dementia Social History Alcohol intake: never Patient Tobacco Use Status: Never used Tobacco Physical Exam Vital Signs: Last Vital Signs Pulse 81 08/05/24 10:04 BP 146/78 H 08/05/24 10:04 Pulse Ox 95 08/05/24 10:04 Oxygen Delivery Method Room Air 08/05/24 10:04 BMI result Body Mass Index 22.3 Const General: cooperative, comfortable and no acute distress Nutritional Appearance: average body habitus Orientation/consciousness: patient oriented x3 HEENT Face and sinus: Yes face symmetric Throat: Yes other ([place] score 2) Eyes Pupils: Equal, round and reactive pupils present Neck Neck: Yes full ROM Resp Effort & Inspection: normal respiratory effort and able to speak in complete sentences Neuro Other: pinguecula r. eye medial aspect, does not interfere with vision General: patient oriented x3 and moves all extremities Cranial nerves: Yes Facial sensation intact/muscles of mastication intact, Yes Equal, round and reactive pupils present, Yes Normal facial strength present, Yes Ability to bilaterally rotate head present and Yes Ability to bilaterally elevate shoulders present Gait exam (Neuro): Normal gait present Motor exam (neuro): Abnormal motor strength present and Abnormal muscle tone present Coordination: [id number] test normal Psych Appearance: grossly normal Speech and movement: Slowed movement present (Neuro) Affect: normal affect Attitude: cooperative Thought process: Normal thought process present Thought content: Normal thought content present Results Reviewed Results Reviewed: 04/2024 MRI FINDINGS: There is diffuse prominence of the ventricular system and cortical sulci, consistent with atrophy. Periventricular and subcortical white matter hyperintensities are noted on the FLAIR and T2-weighted images which are nonspecific, but often seen in the setting of small vessel ischemic disease. There is no mass effect or midline shift. There are scattered punctate foci of hemosiderin in the right occipital lobe and left frontal lobe which are new from the prior study. There is no evidence of acute intracranial hemorrhage. There are no foci of restricted diffusion. Assessment & Plan Assessment & Plan (1) Memory change: Code(s): R41.3 - Other amnesia Category: Medical (2) Cognitive disorder: Comment: dementia Code(s): F09 - Unspecified mental disorder due to known physiological condition Category: Medical (3) Anxiety: Code(s): F41.9 - Anxiety disorder, unspecified Category: Medical (4) Alzheimer's dementia: Code(s): G30.9 - Alzheimer's disease, unspecified; F02.80 - Dementia in other diseases classified elsewhere, unspecified severity, without behavioral disturbance, psychotic disturbance, mood disturbance, and anxiety Category: Medical Qualifiers: Alzheimer's disease onset: unspecified onset Dementia severity: moderate Dementia behavioral or psychological symptom: with anxiety Qualified Code(s): G30.9 - Alzheimer's disease, unspecified; F02.B4 - Dementia in other diseases classified elsewhere, moderate, with anxiety Plan Mood irritability Increased escitalopram from 10mg po to 20mg po daily for anxiety and depression Cognitive Decline / Alzheimers dementia Continue donepezil 10mg po qd and vitamin D supplement. Continue Memantine XR 28mg po qd Start Cerefolin 1tablet daily at bedtime for 90 days. For sleep disturbances continue Rozerem 8mg po daily at bedtime. Will do an MRI for Leqembi MMSE was 15/30 today, daughter not certain if Leqembi is a good option for her. Will consider PET Amyloid for possible treatment with leqembi MRI reviewed with patient microvascular ischemic disease and cortical atrophy. Continue reading, and engaging in social activities, increase difficulty levels of puzzles and walk with walker for 10-15 min daily. F/U in 4 months Medications: New ramelteon (Rozerem) 8mg po daily at bedtime. 8 mg PO BEDTIME 90 tabs 1RF sleep insomnia 90 days MDD 8mg G47.00 - Insomnia, unspecified [id number] [id number] mg (Cerefolin) take one tablet daily by mouth at bedtime 1 tab PO ONCE 90 tabs 0RF cognitive decline 3 months MDD 1 tablet R41.3 - Other amnesia Changed From escitalopram oxalate 10 mg PO DAILY 30 tabs 3RF F41.9 - Anxiety disorder, unspecified To escitalopram oxalate take 1 tablet of 20mg daily at breakfast. 20 mg PO DAILY 90 tabs 3RF anxiety 90 days MDD 20mg F41.9 - Anxiety disorder, unspecified Patient Instructions: Sleep Hygiene provided: set a scheduled bedtime and wake time to help regulate the circadian rhythm and balance the release of pituitary hormones. Sleep in a dark room, temperatures below 68 degrees, and no devices n bed. Limit caffeinated products 6 hours prior to bed, and limit fluids 2-4 hours prior to bed. Gentle night yoga, diffusing essential oils, and playing soft music can be relaxing. Coding Level of Care Code Est Pt Level 4 (50894) Diagnoses Memory change R41.3 Cognitive disorder F09 Anxiety F41.9 Moderate Alzheimer's dementia with anxiety, unspecified timing of dementia onset G30.9; F02.B4 Alzheimer's disease onset: unspecified onset Dementia severity: moderate Dementia behavioral or psychological symptom: with anxiety Time Spent (min) 30 Comment Improving
== END 2024-08-05 11:05 | disposition home or self-care (01) ==
LOC: HO.HSMS 09:36
PROVIDERS: PCP Internal Medicine Geriatric Medicine; Visit Provider Physician Assistant Medical
DX: G30.9 Alzheimer's disease, unspecified (principal); F02.B4 Dementia in other diseases classified elsewhere, moderate, with anxiety; R41.3 Other amnesia
CPT/HCPCS: 99214

== ENCOUNTER → 2024-08-05 09:35 | Outpatient (BNVA) | payer MEDICAID, SELFPAY | PROVIDERS: PCP Internal Medicine Geriatric Medicine; Visit Provider Physician Assistant Medical | DX: R41.3 Other amnesia (principal); F09 Unspecified mental disorder due to known physiological condition; G30.9 Alzheimer's disease, unspecified; F02.B4 Dementia in other diseases classified elsewhere, moderate, with anxiety | CPT/HCPCS: 99212 ==